=== PATIENT | female | born 1990 | race Caucasian/White ===

== ENCOUNTER 2021-05-09 21:27 | Emergency (ER) | payer OTHER ==
[2021-05-09 22:24] LABS: HEMOGLOBIN 14.1 gm/dl (12.3-15.3); RED BLOOD COUNT 4.8 M/UL (4.00-5.10); WHITE BLOOD COUNT 7.6 K/UL (4.5-11.0)
[2021-05-09 22:42] LABS: BUN/CREATININE RATIO 21 (0-10)
[2021-05-09] MEDS ORDERED: BENTYL 20MG TAB20 MG PO (23:36)
[2021-05-09] MEDS ORDERED: ZOFRAN ODT 4 MG4 MG PO (23:36)
[2021-05-09] MEDS ORDERED: AMOX TR-K CLV1 EAC4 PO (23:36)
[2021-05-12 22:09] LABS: CHLAMYDIA TRACHOMATIS, NAA Negative (Negative); NEISSERIA GONORRHOEAE, NAA Negative (Negative)
== END 2021-05-10 00:45 | disposition home or self-care (01) ==
LOC: ER1 21:27
PROVIDERS: Physician Assistant
DX: K52.9 Noninfective gastroenteritis and colitis, unspecified (principal); F17.210 Nicotine dependence, cigarettes, uncomplicated; Z91.010 Allergy to peanuts
CPT/HCPCS: 80053; 81001; 83605; 83690; 84703; 85025; 85610; 87086; 96374; 99284; J2405; Q9967